=== PATIENT | female | born 1950 | race Caucasian/White ===

== ENCOUNTER 2017-12-06 08:21 | Day surgery (SDC) | payer MEDICARE, OTHER ==
[2017-12-06] MEDS ORDERED: Sodium Chloride 0.9% 10 ML Syringe FLUSH PRN (08:30)
--- NOTE | 2017-12-06 10:43 | OR ---
DATE OF PROCEDURE: 12/06/2017 POSTOPERATIVE CARE: Postoperative care will be provided mainly at the [address] [place] [address] [facility] in conjunction with [facility]. PREOPERATIVE DIAGNOSIS: Cataract, left eye. PREOPERATIVE DIAGNOSIS: Cataract, left eye. PROCEDURE: Cataract extraction, phacoemulsification with intraocular lens placement, left eye. ANESTHESIA: Topical and intracameral. ESTIMATED BLOOD LOSS: Minimal. COMPLICATIONS: None. PATHOLOGY SPECIMENS: None. SURGICAL FINDINGS: None. INDICATION FOR PROCEDURE: The patient is a 67-year-old female with history of a visually significant cataract in the left eye, which interfered with activities of daily living. This consisted of a nuclear sclerosis cataract. Following careful discussion of the risks, benefits and alternatives to cataract extraction with intraocular lens placement including blindness and , the patient elected to proceed, and informed, written consent was obtained prior to the procedure. DESCRIPTION OF THE PROCEDURE: The patient was previously identified, and a parisa placed above the left eye. All sources, including the patient, indicated that the left eye was the correct eye. The patient was subsequently taken to the operating room where standard monitors were applied. The patient was then prepped and draped in the usual sterile fashion for ophthalmic surgery. Attention was first directed at the 12 o'clock position where a paracentesis port was fashioned. Shugar solution followed by Viscoat was instilled into the eye. Attention was then directed to the 8:30 position where a triplanar incision was made in a near-clear manner using a keratome. A continuous capsulorrhexis was then made using a combination of the cystotome and Utrata forceps. Hydrodissection was achieved using a balanced salt solution, and the lens rotated nicely. Phacoemulsification was then done using a modified [id number] technique without complication. Phaco time was 4.46 CDE. The remaining cortex was removed using the irrigation/aspiration handpiece. Provisc was then instilled into the eye. A Technis lens, model [id number], at 18.0 diopters was then placed in the capsular bag using an [place] injector. The remaining viscoelastic was removed using the irrigation/aspiration forceps. All wounds were then checked and found to be watertight. The lid speculum and drapes were removed. Maxitrol ointment was placed in the patient's left eye, and the eye was shielded. The patient tolerated the procedure well. The patient was instructed to follow up tomorrow. All needle and sponge counts were correct at the end of the procedure. Matilde Dodd MD /[id number]
== END 2017-12-06 10:10 | disposition home or self-care (01) ==
LOC: JP.SDS 08:21
PROVIDERS: ATTEND Ophthalmology
DX: H25.12 Age-related nuclear cataract, left eye (principal)
CPT/HCPCS: C1780

== ENCOUNTER 2017-12-20 08:20 | Day surgery (SDC) | payer MEDICARE, OTHER ==
[2017-12-20] MEDS ORDERED: Sodium Chloride 0.9% 10 ML Syringe FLUSH PRN (08:30)
[2017-12-20] MEDS ORDERED: Midazolam 1 MG/ML 2 ML SDV ONE (09:36)
--- NOTE | 2017-12-20 10:51 | OR ---
DATE OF PROCEDURE: 12/20/2017 POSTOPERATIVE CARE: Postoperative care will be provided mainly at the [address] [place] [address] [facility] in conjunction with [facility]. PREOPERATIVE DIAGNOSIS: Cataract, right eye. POSTOPERATIVE DIAGNOSIS: Cataract, right eye. PROCEDURE: Cataract extraction, phacoemulsification with intraocular lens placement, right eye. ANESTHESIA: Topical and intracameral. ESTIMATED BLOOD LOSS: Minimal. COMPLICATIONS: None. PATHOLOGY SPECIMENS: None. SURGICAL FINDINGS: None. INDICATION FOR PROCEDURE: The patient is a 67-year-old female with history of a visually significant cataract in the right eye, which interfered with activities of daily living. This consisted of a nuclear sclerosis cataract. Following careful discussion of the risks, benefits and alternatives to cataract extraction with intraocular lens placement including blindness and , the patient elected to proceed, and informed, written consent was obtained prior to the procedure. DESCRIPTION OF THE PROCEDURE: The patient was previously identified, and a parisa placed above the right eye. All sources, including the patient, indicated that the right eye was the correct eye. The patient was subsequently taken to the operating room where standard monitors were applied. The patient was then prepped and draped in the usual sterile fashion for ophthalmic surgery. Attention was first directed at the 12 o'clock position where a paracentesis port was fashioned. Shugar solution followed by Viscoat was instilled into the eye. Attention was then directed to the 8:30 position where a triplanar incision was made in a near-clear manner using a keratome. A continuous capsulorrhexis was then made using a combination of the cystotome and Utrata forceps. Hydrodissection was achieved using a balanced salt solution, and the lens rotated nicely. Phacoemulsification was then done using a modified [id number] technique without complication. Phaco time was 4.03 CDE. The remaining cortex was removed using the irrigation/aspiration handpiece. Provisc was then instilled into the eye. A Technis lens, model [id number], at 20.0 diopters was then placed in the capsular bag using an [place] injector. The remaining viscoelastic was removed using the irrigation/aspiration forceps. All wounds were then checked and found to be watertight. The lid speculum and drapes were removed. Maxitrol ointment was placed in the patient's right eye, and the eye was shielded. The patient tolerated the procedure well. The patient was instructed to follow up tomorrow. We did add a single 10-0 nylon stitch in the main wound. After irrigation and aspiration, all wound were checked and found to be watertight. All needle and sponge counts were correct at the end of the procedure. Matilde Dodd MD /[id number]
== END 2017-12-20 10:22 | disposition home or self-care (01) ==
LOC: JP.SDS 08:20
PROVIDERS: ATTEND Ophthalmology
DX: H25.11 Age-related nuclear cataract, right eye (principal); Z86.59 Personal history of other mental and behavioral disorders; Z88.1 Allergy status to other antibiotic agents; Z88.2 Allergy status to sulfonamides; Z88.8 Allergy status to other drugs, medicaments and biological substances; Z88.5 Allergy status to narcotic agent
CPT/HCPCS: 66984; J2250; V2632

== ENCOUNTER 2019-09-17 19:48 | Emergency (ER) | payer MEDICARE, BC ==
--- NOTE | 2019-09-17 20:58 | EDM.PDOC ---
ED HPI GENERAL MEDICAL PROBLEM - General Chief Complaint: Cardiovascular Problem Stated Complaint: HIGH BP, HEADACHE, VERTIGO Time Seen by Provider: 09/17/19 20:37 - History of Present Illness INITIAL COMMENTS - FREE TEXT/NARRATIVE: Patient declined to be evaluated or seen so therefore no history and physical no exam was done - Related Data Allergies Allergy/AdvReac Type Severity Reaction Status Date / Time paroxetine HCl [From Paxil] Allergy Intermediate Hives Verified 12/17/17 10:24 amoxicillin [From Augmentin] Allergy Nausea and Verified 12/20/17 08:37 Vomiting clarithromycin [From Biaxin] Allergy Cannot Verified 12/17/17 10:24 Remember clavulanic acid Allergy Nausea and Verified 12/20/17 08:37 [From Augmentin] Vomiting codeine Allergy Vomiting Verified 12/17/17 10:24 erythromycin base Allergy Hives Verified 12/17/17 10:24 [Erythromycin Base] sulfamethoxazole Allergy Cannot Verified 12/17/17 10:24 [From Bactrim] Remember trimethoprim [From Bactrim] Allergy Cannot Verified 12/17/17 10:24 Remember Home Meds: Home Meds Tretinoin/Emol Cmb9/Skin Cln1 [Tretin-X 0.025% Cream Comb Pck] 1 each TP BEDTIME 12/04/17 [History] Moxifloxacin HCl [Moxifloxacin] 1 drop EYELF QID 12/17/17 [History] prednisoLONE Acetate [Prednisolone Acetate] 1 drop EYELF QID 12/17/17 [History] Past Medical History HEENT History: Reports: Cataract, Impaired Vision Cardiovascular History: Reports: None Gastrointestinal History: Reports: None Genitourinary History: Reports: None WET SANDER History: Reports: , Spontaneous Neurological History: Reports: None Psychiatric History: Reports: Anxiety, Panic Attack Endocrine/Metabolic History: Reports: None - Infectious Disease History Infectious Disease History: Reports: Chicken Pox - Past Surgical History Head Surgeries/Procedures: Reports: None HEENT Surgical History: Reports: Cataract Surgery Cardiovascular Surgical History: Reports: None GI Surgical History: Reports: Cholecystectomy, Colonoscopy Female Surgical History: Reports: Section Dermatological Surgical History: Reports: None Social & Family History - Family History Family Medical History: Noncontributory - Caffeine Use Caffeine Use: Reports: Coffee ED ROS GENERAL - Review of Systems Review Of Systems: Unable To Obtain Reason Not Obtained: Patient left without being seen ED EXAM, GENERAL - Physical Exam Exam: Not Obtained Reason Not Obtained: Patient left without being seen Course - Vital Signs Last Recorded V/S: Last Vital Signs Temp 96.8 F 09/17/19 20:32 Pulse 79 09/17/19 20:32 Resp 16 09/17/19 20:32 BP 176/71 H 09/17/19 20:32 Pulse Ox 96 09/17/19 20:32 Departure - Departure Time of Disposition: 20:57 Disposition: Left Without Being Seen 07 Condition: Undetermined Clinical Impression: Patient left without being seen Referrals: PCP,None [Primary Care Provider] - Forms: ED Department Discharge Sepsis Event Note - Focused Exam Vital Signs: Vital Signs Temp Pulse Resp BP Pulse Ox 09/17/19 20:32 96.8 F 79 16 176/71 H 96 Date Exam was Performed: 09/17/19 Time Exam was Performed: 20:57
== END 2019-09-17 20:55 | disposition left against medical advice (07) ==
LOC: JP.ED 19:48
DX: Z53.21 Procedure and treatment not carried out due to patient leaving prior to being seen by health care provider (principal)